=== PATIENT | male | born 1945 | race Caucasian/White ===

== ENCOUNTER → 2017-02-12 | Day surgery (SDC) | payer OTHER ==
[2017-02-02 13:01] VITALS: BMI 31.0
--- NOTE | 2017-02-02 13:51 | PAT Medication Instructions ---
Service Date Feb 02, 2017. Current Home Medication List Aspirin (Aspirin Ec), 81 MG PO BID Carvedilol (Coreg), 1 TAB PO BID Coenzyme Q10 (Ubidecarenone) (Coq10), 100 MG PO QAM Escitalopram Oxalate (Lexapro), 20 MG PO QAM PRN for RN Fish Oil (Sparks-3), 1 CAP PO QAM Garlic (Garlic), 1,000 MG PO QAM Omeprazole (Prilosec), 20 MG PO QAM Rivaroxaban (Xarelto), 20 MG PO QAM Medication Instructions For Your Scheduled Surgery Check with your disintegrator for instructions for: Aspirin (Aspirin Ec), 81 MG PO BID - Hold the following medications 2 weeks prior to surgery: Fish Oil (Sparks-3), 1 CAP PO QAM Garlic (Garlic), 1,000 MG PO QAM Coenzyme Q10 (Ubidecarenone) (Coq10), 100 MG PO QAM - Hold the following medications 3 days prior to surgery per your disintegrator' s instructions: Rivaroxaban (Xarelto), 20 MG PO QAM - Take the following medications the morning of surgery with a sip of water: Carvedilol (Coreg), 1 TAB PO BID Omeprazole (Prilosec), 20 MG PO QAM Escitalopram Oxalate (Lexapro), 20 MG PO QAM PRN for RN (if needed) - Take the following medications as scheduled the night before surgery: Carvedilol (Coreg), 1 TAB PO BID Escitalopram Oxalate (Lexapro), 20 MG PO QAM PRN for RN (if needed) If you have any questions please call us at [phone] or [phone] or [phone]
--- NOTE | 2017-02-02 14:30 | DIAGNOSTIC IMAGING REPORT ---
CHEST 2 VIEWS ROUTINE HISTORY: 71 years-old Male PAT preoperative exam. Calcaneal spur. COMPARISON: None available TECHNIQUE: PA and lateral views of the chest FINDINGS: Cardiomediastinal and hilar silhouettes are within normal limits. Prior median sternotomy with surgical clips projecting over the left heart border. Several of the sternotomy wires are fractured without evidence of diastases. Atherosclerosis of the aorta. No pneumothorax, pleural effusion, focal airspace consolidation or overt pulmonary edema. Bones of the chest appear grossly intact. Multilevel endplate spurring of the spine. IMPRESSION: 1. No acute cardiopulmonary process. 2. Prior median sternotomy with multiple fractured sternotomy wires. No evidence of diastases. The above report was generated using voice recognition software. It may contain grammatical, syntax or spelling errors. Electronically signed by: León Pal M.D. 02/02/2017 2:29 PM Dictated Date/Time: 02/02/2017 2:27 PM
--- NOTE | 2017-02-11 17:24 | History and Physical ---
History & Physical Date Feb 11, 2017. Chief Complaint right achilles pain History of Present Illness The patient is a 71 year old male with complaints of chronic right achilles pain. He had been treated conservatively for achilles tendinitis but failed conservative management. He is now being set up for surgical tx. Past Medical/Surgical History PMH: coronary artery disease, hx of A fib, HTN, Anxiety, GERD, hyperlipidemia Past surgical hx: open heart surgery, appendectomy Social hx: Patient is retired. Former smoker. Occasional alcohol drink. Allergies Coded Allergies: NO KNOWN DRUG ALLERGIES (Verified Allergy, Unknown, NONE, 02/02/17) Shellfish (Verified Allergy, Unknown, ANAPHYLAXIS, 02/02/17) SOB SWELLING-OK WITH TOPICAL AND IV DYES Home Medications Scheduled Aspirin (Aspirin Ec), 81 MG PO BID Carvedilol (Coreg), 1 TAB PO BID Coenzyme Q10 (Ubidecarenone) (Coq10), 100 MG PO QAM Fish Oil (Strong-3), 1 CAP PO QAM Garlic (Garlic), 1,000 MG PO QAM Omeprazole (Prilosec), 20 MG PO QAM Rivaroxaban (Xarelto), 20 MG PO QAM Scheduled PRN Escitalopram Oxalate (Lexapro), 20 MG PO QAM PRN for RN Physical Examination Skin: warm/dry, no rash Eyes: normal inspection ENT: normal ENT inspection Head: normocephalic, atraumatic Neck: supple, no adenopathy, trachea midline Respiratory/Chest: lungs clear, normal breath sounds, no respiratory distress Cardiovascular: regular rate, rhythm, no murmur Abdomen / GI: normal bowel sounds, non tender Extremities: + pertinent finding (Right ankle: prominence of the posterior calcaneus. Swelling along the achilles. Tender at the midsubstance achilles and the achilles insertion. Painful PROM right ankle.) Neurologic/Psych: no motor/sensory deficits, alert, oriented x 3 Diagnosis Right achilles tendinitis Right calcaneal spurs Plan of Treatment Recommend a right achilles reconstruction with FHL tendon transfer, calcaneal exostectomy, resection Tommy's, application PRP. All potential risks, benefits, complications, alternatives, and rehab have been discussed with the patient and he wishes to proceed. He will be scheduled on 02.12.17 with plans to resume Xarelto on POD #1. His pharmacy scheduler recommends spinal and sedation with popliteal block for the procedure.
[~2017-02-12] VITALS: Ht 182.9 cm; Wt 105.6 kg
[~2017-02-12] MED LIST: ASPI81TA28 PO; ATROPINE SULFATE 0.1 MG/ML 5ML SYR IV PRN; BACITRACIN 50000 UNIT VIAL ONE; BUPIVACAINE 0.25% 30 ML VIAL ONE; BUPIVACAINE 0.5 % 5 MG/1 ML PF 10ML VIAL ONE; CALCIUM CHLORIDE 10% 10 ML SYR ONE; CARV6.252 PO; CEFAZOLIN 2000MG IV PUSH 10 ML IV SCH; COEN100C7 PO; DEXAMETHASONE SOD INJ 4 MG/ML VIAL ONE; ESCI1TAB10 PO; EpHEDrine SULFATE INJ 50 MG/ML AMP IV PRN; FENTANYL CITRATE INJ 50 MCG/1 ML 2 ML VIAL IV PRN; FENTANYL CITRATE INJ 50 MCG/1 ML 2 ML VIAL ONE; GARL10007 PO; LACTATED RINGER'S 1000ML 1,000 ML IV SCH; LIDOCAINE HCL 2% 2 ML VIAL (20MG/ML) ONE; MIDAZOLAM HCL 1 MG/ML 2ML VIAL ONE; MORPHINE SULFATE 1MG/1ML 30ML VIAL IV ONE; OMEG10007 PO; ONDANSETRON INJ 2 MG/ML 2 ML VIAL IV PRN; ONDANSETRON INJ 2 MG/ML 2 ML VIAL ONE; OXYC-57 PO; OXYCODONE/ACETAMINOPHEN 5-325 TAB PO PRN; OXYCODONE/ACETAMINOPHEN 5-325 TAB PO SCH; PERCOCET HOME PACK PO ONE; PERCOCET HOME PACK PO SCH; PRLSR20 PO; PROM25TA9 PO; PROPOFOL IV EMULSION 10 MG/ML 20 ML VIAL IV ONE; RIVA1TAB4 PO; ROPIVACAINE 0.5% 5 MG/ML 30 ML VIAL ONE; THROMBIN 5000 UNITS KIT ONE
[2017-02-12 11:15] VITALS: BP 156/80; PULSE 64; TEMP 36.5; O2SAT 97; Ht 182.9 cm; Wt 105.6 kg
--- NOTE | 2017-02-12 14:43 | History & Physical Bridge Note ---
H&P Re-Evaluation Bridge Note: I have examined the patient, reviewed the History & Physical and in the interval since the performance of the History & Physical I have noted the following changes of clinical significance: No changes noted
--- NOTE | 2017-02-12 17:37 | Discharge Instructions ---
Discharge Instructions Date of Service Feb 12, 2017. Admission Reason for Admission: Right Foot Haglunds, Calcaneal Spur, Achilles Tend Discharge Discharge Diagnosis / Problem: right achilles tendinitis Discharge Goals Goal(s): Decrease discomfort, Improve function Activity Recommendations Activity Limitations: per Instructions/Follow-up section Weightbearing Status: Right non-weightbearing . Instructions / Follow-Up Instructions / Follow-Up ACTIVITY RECOMMENDATIONS: Limitations: No weight bearing to affected limb at all times. SPECIAL CARE INSTRUCTIONS: * Some drainage onto the dressing is normal and is no cause for alarm. * Some swelling is natural especially after walking. * When resting, keep your foot elevated above the level of your heart. * Call [facility] if you notice: -Increased drainage -Fever over 101 degrees F -Severe constant pain BANDAGE: * Leave bandage/cast in place unless otherwise directed. * Keep bandage/cast dry at all times. FOLLOW UP VISIT WITH DR. FITZPATRICK If appointment is not already scheduled: Please call [facility] after you get home today to schedule a follow-up appointment for [address] Fitzpatrick at . Current Hospital Diet Patient's current hospital diet: Discharge Diet Recommended Diet: Regular Diet Pending Studies Studies pending at discharge: no Medical Emergencies . Who to Call and When: Medical Emergencies: If at any time you feel your situation is an emergency, please call [phone] immediately. . Non-Emergent Contact Non-Emergency issues call your: Surgeon Call Non-Emergent contact if: temperature is above 101, your pain is not controlled, your pain is worsening . "Provider Documentation" section prepared by Adebayo Boyce. . VTE Core Measure Inpt VTE Proph given/why not?: SCD's
--- NOTE | 2017-02-12 17:58 | [facility] Post Operative Brief Note ---
Immediate Operative Summary Operative Date Feb 12, 2017. Pre-Operative Diagnosis Right Achilles tendonosis Right Calcaneal spur Tommy's Deformity Post-Operative Diagnosis Right Achilles tendonosis Right Calcaneal spur Tommy's Deformity Procedure(s) Performed Right Ankle Achilles Tendon Reconstruction with Flexor Hallucis Longus Tendon Transfer; Right Foot Calcaneal Exostectomy, Resection Haglunds, Application PRP concentrate Surgeon Dr. Cedric Dumont Rn Clinician Surgeon(s) none Estimated Blood Loss 5 ml Findings See dict Specimens None per Surgeon Drains None Anesthesia Spinal with sedation and popliteal block Complication(s) None Disposition Recovery Room / PACU
--- NOTE | 2017-02-12 18:39 | Anesthesiology Progress Note ---
Anesthesia Post Op Note Date & Time Feb 12, 2017 at 18:38 Vital Signs Pain Intensity: 0 Vital Signs Past 12 Hours Date Time Temp Pulse Resp B/P (MAP) Pulse Ox O2 Delivery O2 Flow Rate FiO2 02/12/17 18:25 70 11 137/81 98 Room Air 02/12/17 18:15 63 12 163/95 100 Oxymask 10 02/12/17 18:05 36.1 70 14 147/112 100 Oxymask 10 02/12/17 11:15 36.5 64 20 156/80 (105) 97 Room Air Notes Mental Status: alert / awake / arousable, participated in evaluation Pt Amnestic to Procedure: Yes Nausea / Vomiting: adequately controlled Pain: adequately controlled Airway Patency, RR, SpO2: stable & adequate BP & HR: stable & adequate Hydration State: stable & adequate Neuraxial Anesthesia: was administered, sensory block is resolving Anesthetic Complications: no major complications apparent
[2017-02-12 18:45] VITALS: BP 152/75; PULSE 69; TEMP 36.7; O2SAT 96
[2017-02-12 19:15] VITALS: BP 151/73; PULSE 86; TEMP 36.8; O2SAT 95
--- NOTE | 2017-02-18 13:31 | OPERATIVE REPORT ---
DATE OF OPERATION: 02/12/2017 PREOPERATIVE DIAGNOSES: 1. Right Tommy's deformity. 2. Severe Achilles tendinosis. 3. Posterior calcaneal exostosis. POSTOPERATIVE DIAGNOSES: Same. PROCEDURE: 1. Right Achilles tendon reconstruction with flexor hallucis longus tendon transfer. 2. Resection of Tommy's deformity. 3. Posterior calcaneal exostectomy. 4. Application of platelet rich plasma concentrate. SURGEON: Dr. Dumont. CERTIFIED NOVELL ADMINISTRATOR: None. ANESTHESIA: Spinal with sedation and popliteal block. SPECIMENS: None. DRAINS: None. COMPLICATIONS: None. BLOOD LOSS: 5 mL PERTINENT HISTORY: This is a 71-year-old gentleman who had severe right posterior Achilles pain and deformity. He had attempted conservative management for severe Achilles tendinopathy for an extended period of time including bracing, use of assistive device, shoewear modification, anti-inflammatories, rest. He had an MRI which demonstrated near complete rupture of the Achilles with significant scarring, large exostosis posterior calcaneus, and a large Tommy's deformity. The patient is now scheduled for surgery as indicated. All potential risks, benefits, complications, alternatives, rehab, potential risk for incomplete relief of symptoms, need for further surgery, DVT, PE, , persistent pain, swelling, scarring, weakness, neurovascular injury, wound complications were discussed with the patient. The patient decided to proceed with the procedure as indicated. PROCEDURE: The patient was taken to the Operative Suite and placed supine on the Operating Room table. After reviewing the consent and identification of the proper operative site, the patient was anesthetized. LMA was placed. Tourniquet was placed high on the thigh over cast padding. The right lower extremity was then sterilely prepped and draped in the usual fashion after the patient was rolled prone over bolsters and all bony prominences were properly padded and protected. Next, the right lower extremity was sterilely prepped and draped in the usual fashion. It was elevated and exsanguinated with an Esmarch bandage and tourniquet inflated to 350 mmHg. Next, an incision was made with 15-blade scalpel approximately 1 cm medial to the medial border of the Achilles tendon. The incision was deep into the subcutaneous tissue. Meticulous hemostasis was achieved with electrocautery. Full thickness skin flaps were developed both medially and laterally. The peritenon was identified and then incised in line with the skin incision and gently elevated from the Achilles tendon. The Achilles tendon rupture was clearly visualized and gently dbrided with forceps and scissors. The wound was irrigated copiously with sterile Normal Saline. Allis clamps were placed on the proximal portion of the Achilles tendon and placed on stretch and then #2 Kevlar based suture in this case FiberWire was used to pass through the proximal portion of the rupture with a Krackow locking loop suture. The limbs of the suture were then cut and hemostat was applied. Next, Krackow locking loop suture was then passed through the distal portion of the rupture. Next, the Achilles was placed in slight equinus. The ends of the tendon rupture were then easily approximated and then tied and hemostats were applied. Next, #2 FiberWire suture was then passed in a Satsop weave through the proximal and distal halves of the tendon rupture and then tied and cut with appropriate tension applied to the Achilles tendon. Next, the ends of the sutures were then cut and the repair site was then reinforced with running 2-0 Vicryl suture. The wound was irrigated with sterile Normal Saline. The peritenon was then closed using 3-0 Vicryl. The dermis was closed using buried interrupted 3-0 Vicryl and the skin was closed using 4-0 nylon. A sterile compressive dressing and bulky Fredrick Whalen plaster splint was applied in slight gravity equinus overwrapped with an Ga wrap. The tourniquet was released. The patient was awakened and taken to Recovery in stable condition. ERNESTO
== END | disposition home or self-care (01) ==
LOC: C.ACU 10:42
PROVIDERS: ATTEND Orthopaedic Surgery Sports Medicine
DX: M92.61 Juvenile osteochondrosis of tarsus, right ankle (principal); M76.61 Achilles tendinitis, right leg; M77.31 Calcaneal spur, right foot; I48.91 Unspecified atrial fibrillation; I25.10 Atherosclerotic heart disease of native coronary artery without angina pectoris; I10 Essential (primary) hypertension; E78.5 Hyperlipidemia, unspecified; K21.9 Gastro-esophageal reflux disease without esophagitis; F41.9 Anxiety disorder, unspecified; Z87.891 Personal history of nicotine dependence; Z79.01 Long term (current) use of anticoagulants; Z79.82 Long term (current) use of aspirin; Z79.899 Other long term (current) drug therapy; Z95.1 Presence of aortocoronary bypass graft; K44.9 Diaphragmatic hernia without obstruction or gangrene; F32.9 Major depressive disorder, single episode, unspecified

== ENCOUNTER 2018-12-08 08:30 | Inpatient (IN) ==
--- NOTE | 2018-12-02 12:08 | Anesthesiology Consultation ---
Date of Service December 02, 2018 Assessment & Plan Chart Review Chart Review: Pending: Refer to Additional Notes / Consult section (cardiologists most recent note) History Surgery Operation Date: 12/08/18 07:30 Proposed Procedures p L4-L5, L5-S1 Decompression and Fusion with Spinal Cord Monitoring - Sagar Cohen DO Height/Weight Height: 6 ft Weight: 99.79 kg Allergies Allergy/AdvReac Type Severity Reaction Status Date / Time No Known Drug Allergies Allergy Unknown NONE Verified 11/23/18 15:57 shellfish derived Allergy HIVES,EVERYTHING Verified 11/23/18 15:57 SWELLS UP, SOME TROUBLE BREATHING Medications Home Medications Medication Instructions Recorded Confirmed Last Taken aspirin [Aspir-81] 81 mg PO BID 11/23/18 11/23/18 Unknown atorvastatin 10 mg PO DAILY 11/23/18 11/23/18 Unknown carvedilol 6.25 mg PO BID 11/23/18 11/23/18 Unknown cyclobenzaprine 10 mg PO HS 11/23/18 11/23/18 Unknown escitalopram oxalate 20 mg PO QAM 11/23/18 11/23/18 Unknown omeprazole 20 mg PO QAM 11/23/18 11/23/18 Unknown rivaroxaban [Xarelto] 20 mg PO DAILY 11/23/18 11/23/18 Unknown zolpidem 10 mg PO UD PRN 11/23/18 11/23/18 Unknown Past Medical History Medical History Acid reflux Afib DX 2 YR AGO - NO CARDIOVERSION Anxiety and depression Degenerative disc disease History of [place] (myocardial infarction) AFTER HEART TESTING - WAS TOLD HAD "PARTIAL" [place] IN HX AND PROBABLY DIDN'T KNOW HE HAD IT Hypertension Past Surgical History Surgical History History of Achilles tendon repair RIGHT History of appendectomy History of cardiac cath X2 2001...CATH....RUSHED FOR OPEN HEART SURGERY 4 YR AGO - RECOMMENDED - NO FINDINGS - LISSA SIMPSON History of colonoscopy History of open heart surgery TRIPLE BYPASS 2001 History of total left knee replacement Social History Smoking Status: Former smoker Do You Dip or Chew Tobacco: No Smoking End Date: SMOKED 60 YRS, QUIT 2-3 YR AGO Hx Alcohol Use: Yes Alcohol type: hard liquor alcohol intake frequency: 0-2 drinks per day Hx Substance Use: No substance use type: does not use Testing Laboratory Results Blood Type O Positive 11/22/18 11:40 Antibody Screen NEGATIVE 11/22/18 11:40 Laboratory Tests 11/22/18 11/22/18 11/22/18 11:39 11:39 11:39 WBC 10.31 Hgb 14.4 Hct 42.3 Plt Count 298 PT 13.0 H INR 1.3 H APTT 34.7 H Sodium 136 Potassium 3.9 Chloride 102 Carbon Dioxide 25 BUN 24 H Creatinine 0.97 Electrocardiogram Date: 09/19/18 09/19/2018 Sinus rhythm with first degree AV block intermittent sinus pause with junctional escape non specific intraventricular conduction block Chest X-Ray Date: 09/19/18 Findings: + NAD Echocardiogram Date: 10/12/18 10/12/18 Final report 1. High normal left ventricular size with increase in wall thickness and left ventricular hypertrophy 2. Global hypokinesis, more pounds over the inferoapical septum consistent with underlying ischemic cardiomyopathy 3. Depressed LV function at 45%, was 40% in previous study in 2017 4. Grade I LV diastolic dysfunction, correlate clinically 5. Normal sized RV and function 6. Normal sized both atria and aortic root 7. Aortic peak gradient 8.08 mmHg 8. Mitral valve area 4.2cn squared 9. Mild MR, Mild TR and mild PI by doppler study 10. Mild pulmonary hypertension at 35.40mmHg Stress Test Date: 10/12/18 myocardial perfusion stress test 10/12/18 Impression: Scarring of the inferior, apical and far apical anterior segments with no e vidence of current ischemia. The overall left ventricular function is moderately to markedly reduced with global hypokinesis, beyond that expected from what would be predicated bases on the myocardial perfusion images. There is likely concomitant cardiomyopathy.
[~2018-12-08 08:30] MED LIST changes: +ACETAMINOPHEN 500 MG TAB PO SCH; -ASPI81TA28 PO; -ATROPINE SULFATE 0.1 MG/ML 5ML SYR IV PRN; -BACITRACIN 50000 UNIT VIAL ONE; -BUPIVACAINE 0.25% 30 ML VIAL ONE; -BUPIVACAINE 0.5 % 5 MG/1 ML PF 10ML VIAL ONE; -CALCIUM CHLORIDE 10% 10 ML SYR ONE; -CARV6.252 PO; +CEFAZOLIN 2000MG 2,000 MG/15 ML SYR IV SCH; -CEFAZOLIN 2000MG IV PUSH 10 ML IV SCH; -COEN100C7 PO; +CeleBREX 200 MG CAP PO SCH; -DEXAMETHASONE SOD INJ 4 MG/ML VIAL ONE; -ESCI1TAB10 PO; -EpHEDrine SULFATE INJ 50 MG/ML AMP IV PRN; -FENTANYL CITRATE INJ 50 MCG/1 ML 2 ML VIAL IV PRN; -FENTANYL CITRATE INJ 50 MCG/1 ML 2 ML VIAL ONE; +GABAPENTIN 300 MG CAP PO SCH; -GARL10007 PO; -LACTATED RINGER'S 1000ML 1,000 ML IV SCH; -LIDOCAINE HCL 2% 2 ML VIAL (20MG/ML) ONE; +LR 15ML/HR IV SCH; -MIDAZOLAM HCL 1 MG/ML 2ML VIAL ONE; -MORPHINE SULFATE 1MG/1ML 30ML VIAL IV ONE; -OMEG10007 PO; -ONDANSETRON INJ 2 MG/ML 2 ML VIAL IV PRN; -ONDANSETRON INJ 2 MG/ML 2 ML VIAL ONE; -OXYC-57 PO; -OXYCODONE/ACETAMINOPHEN 5-325 TAB PO PRN; -OXYCODONE/ACETAMINOPHEN 5-325 TAB PO SCH; -PERCOCET HOME PACK PO ONE; -PERCOCET HOME PACK PO SCH; -PRLSR20 PO; -PROM25TA9 PO; -PROPOFOL IV EMULSION 10 MG/ML 20 ML VIAL IV ONE; -RIVA1TAB4 PO; -ROPIVACAINE 0.5% 5 MG/ML 30 ML VIAL ONE; +SODIUM CHLORIDE 0.9% 250 ML IV PRN; -THROMBIN 5000 UNITS KIT ONE
[2018-12-08] MEDS ORDERED: fentaNYL citrate 100 MCG/2 ML VIAL ONE ×4 (08:34→11:26)
[2018-12-08] MEDS ORDERED: MIDAZOLAM HCL 1 MG/ML 2ML VIAL ONE (08:34)
[2018-12-08] MEDS ORDERED: HYDROmorphone INJ 2 MG/ML SYR/VIAL ONE ×2 (08:34→09:57)
--- NOTE | 2018-12-08 09:39 | History & Physical Bridge Note ---
Date of Service December 08, 2018 History & Physical Bridge Note I have examined the patient, reviewed the History & Physical and in the interval since the performance of the History & Physical I have noted the following changes of clinical significance: no changes noted
--- NOTE | 2018-12-08 09:40 | History & Physical Report ---
Date of Service December 08, 2018 Assessment & Plan (1) Spinal stenosis, lumbar region with neurogenic claudication: Decompression fusion L4-5 L5-S1 Present on Admission?: Yes History of Present Illness Chief Complaint: Back and bilateral leg pain Primary Care Provider: Tanner Macias 73-year-old male who presents with chronic persistent back and bilateral leg pain. After failing extensive course of nonoperative care is here for surgical intervention. Allergies Allergy/AdvReac Type Severity Reaction Status Date / Time No Known Drug Allergies Allergy Unknown NONE Verified 12/08/18 08:59 shellfish derived Allergy HIVES,EVERYTHING Verified 12/08/18 08:59 SWELLS UP, SOME TROUBLE BREATHING Home Medications Home Medications Medication Instructions Recorded Confirmed Type aspirin [Aspir-81] 81 mg PO BID 11/23/18 12/08/18 History atorvastatin 10 mg PO DAILY 11/23/18 12/08/18 History carvedilol 6.25 mg PO BID 11/23/18 12/08/18 History cyclobenzaprine 10 mg PO HS 11/23/18 12/08/18 History escitalopram oxalate 20 mg PO QAM 11/23/18 12/08/18 History omeprazole 20 mg PO QAM 11/23/18 12/08/18 History rivaroxaban [Xarelto] 20 mg PO DAILY 11/23/18 12/08/18 History zolpidem 10 mg PO UD PRN 11/23/18 12/08/18 History Past Med/Surg History Medical History Acid reflux Afib DX 2 YR AGO - NO CARDIOVERSION Anxiety and depression Degenerative disc disease History of [place] (myocardial infarction) AFTER HEART TESTING - WAS TOLD HAD "PARTIAL" [place] IN HX AND PROBABLY DIDN'T KNOW HE HAD IT Hypertension Surgical History History of Achilles tendon repair RIGHT History of appendectomy History of cardiac cath X2 2001...CATH....RUSHED FOR OPEN HEART SURGERY 4 YR AGO - RECOMMENDED - NO FINDINGS - LISSA SIMPSON History of colonoscopy History of open heart surgery TRIPLE BYPASS 2001 History of total left knee replacement Social History Preferred Language: Thai Communication Ability: Effective Iridologist Required: No Beliefs That Will Affect Care: None Current Living Situation: Alone Other Information That Helps Us Care for You: No Feels Safe at Home: Yes Smoking Status: Former smoker Do You Dip or Chew Tobacco: No ; Smoking End Date: SMOKED 60 YRS, QUIT 2-3 YR AGO ; Hx Alcohol Use: Yes Alcohol type: hard liquor Hx Substance Use: No Physical Exam Physical Exam: Patient is alert and oriented neurologically intact. Results & Data Vital Signs (Past 12 Hours) Vital Signs Temp Pulse Resp BP Pulse Ox 12/08/18 09:03 36.6 C 73 20 171/85 H 96
[2018-12-08] MEDS ORDERED: ATROPINE SULFATE 0.1 MG/ML 10ML SYR IV PRN (09:55)
[2018-12-08] MEDS ORDERED: PROMETHAZINE HCL 12.5 MG in SODIUM CHLORIDE 0.9% 50 ML IV PRN ×2 (09:55→14:08)
[2018-12-08] MEDS ORDERED: fentaNYL citrate 100 MCG/2 ML VIAL IV PRN (09:55)
[2018-12-08] MEDS ORDERED: METOCLOPRAMIDE HCL INJ 5 MG/ML 2 ML VIAL IV PRN ×2 (09:55→14:08)
[2018-12-08] MEDS ORDERED: ONDANSETRON INJ 2 MG/ML 2 ML VIAL IV PRN ×2 (09:55→14:08)
[2018-12-08] MEDS ORDERED: HYDROmorphone INJ 2 MG/ML SYR/VIAL IV PRN (09:55)
[2018-12-08] MEDS ORDERED: DEXAMETHASONE SOD INJ 4 MG/ML VIAL IV PRN (09:55)
[2018-12-08] MEDS ORDERED: ePHEDrine sulfate 50 MG/ML AMP IV PRN (09:55)
[2018-12-08] MEDS ORDERED: BUPIVACAINE/EPINEPHRINE 0.5% MPF 1:200,000 30 ML VIAL ONE (09:56)
[2018-12-08] MEDS ORDERED: LIDOCAINE HCL 2% 2 ML VIAL/AMP(20MG/ML) INFIL ONE (09:56)
[2018-12-08] MEDS ORDERED: ROCURONIUM BROMIDE 10 MG/ML 5 ML VIAL ONE (09:56)
[2018-12-08] MEDS ORDERED: ONDANSETRON INJ 2 MG/ML 2 ML VIAL ONE (09:56)
[2018-12-08] MEDS ORDERED: BACITRACIN INJ 50,000 UNIT VIAL ONE (09:56)
[2018-12-08] MEDS ORDERED: GLYCOPYRROLATE 0.2 MG/ML VIAL ONE (09:56)
[2018-12-08] MEDS ORDERED: DEXAMETHASONE SOD INJ 4 MG/ML VIAL ONE (09:56)
[2018-12-08] MEDS ORDERED: PROPOFOL IV EMULSION 10 MG/ML 20 ML VIAL IV ONE (09:56)
[2018-12-08] MEDS ORDERED: NEOSTIGMINE METHYLSULFATE 1 MG/ML 10ML VIAL ONE (09:56)
[2018-12-08] MEDS ORDERED: LARYING-O-JET KIT (LTA) ONE (09:56)
[2018-12-08] MEDS ORDERED: FLOSEAL HEMOSTATIC MATRIX 10ML TOP ONE (10:49)
[2018-12-08] MEDS ORDERED: SODIUM CHLORIDE 0.9% INJ 10 ML VIAL ONE (11:45)
--- NOTE | 2018-12-08 12:14 | Operative Report ---
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 #4 interbody fusion L4-5 per #5 placed a peek cage 13 x 26 mm at L4-5. #6 placement of locally harvested morselized autograft in the posterior lateral gutters. #9 placement infuse collagen sponge bone mass graft in the posterior lateral gutters and ostial amp and interbody space. Surgeon Sagar Cohen DO [facility] End Department Supervisor Tashia Diaz Estimated Blood Loss 175 Findings Consistent with Post-Op Diagnosis Specimens None Indications This is a 73-year-old male who presents with above-mentioned diagnosis after failing extensive course of nonoperative care like to undergo the above- mentioned procedure. Description of Procedure Patient was met with identified and informed consent obtained. Patient was then taken to the operative suite underwent intubation placed in a prone position the Freddie table on top of the Andrey frame. All bony prominences well-padded eyes inspected to ensure no external pressure placed upon them. Sharp dissection with the assistance of Bovie cautery was then performed down to and exposing the lamina and transverse processes of L4-L5 and the sacral bilaterally. There is obvious autofusion at L5-S1 level. I then performed a complete laminectomy of L4 partial laminectomy L3 from a caudal cephalad fashion including bilateral medial facetectomies and foraminotomies to address severe spinal stenosis as well as removal of facet cyst adhered to the dura. After this complete pedicle screws were placed in L4 and L5 bilaterally with assistance of fluoroscopy and appropriate size zeinab placed. By way of a transforaminal approach on the right a complete discectomy was performed endplates curetted to subcortical bleeding bone and a 13 x 26 mm peek cage filled with ostium bone graft tapped in position. The rods were then locked in final position bilaterally. The transverse processes of L4 an L5 bur to subcortical bleeding bone. Infuse collagen sponge mass graft and local autograft placed in the posterior lateral gutters. 15 round HUNTER drain inserted. Incision was then closed with 1 Vicryl fascia 2-0 Vicryl subcutaneous and 4 Monocryl for final skin closure. Steri- Strip sterile dressings placed. Patient will continue PACU stable disc. Please note Tashia Diaz present on the entire procedure involved in patient positioning complex portions of the surgery and final skin closure. Lastly spinal cord monitoring was utilized throughout the procedure no changes noted. I attest to the content of the Intraoperative Record and any orders documented therein. Any exceptions are noted below.
--- NOTE | 2018-12-08 12:20 | Fluoroscopy Report ---
FL lumbar spine 2-3V CLINICAL HISTORY: L4-S1 DECOMPRESSION AND FUSION COMPARISON STUDY: None FLUOROSCOPY TIME: 15 seconds. NUMBER OF FLUOROSCOPIC IMAGES: 3 FINDINGS: 3 intraoperative fluoroscopic spot images reveal postsurgical changes of an L4-5 discectomy , interbody fusion, and posterior pedicle screw fixation. There is a minimal grade 1 spinal listhesis of L4 and L5. IMPRESSION: Intraoperative fluoroscopic spot images demonstrating a L4-5 spinal decompression and fu alice Electronically signed by: Gus Coates M.D. 12/08/2018 12:18 PM
[2018-12-08] MEDS ORDERED: PHENYLEPHRINE 100MCG/ML 5ML SYR ONE (12:24)
[2018-12-08] MEDS ORDERED: KETOROLAC 30 MG/ML VIAL ONE (12:24)
--- NOTE | 2018-12-08 13:19 | Anesthesiology Progress Note ---
Date of Service December 08, 2018 Anesthesia Post Procedure Vital Signs Vital Signs: Temp Pulse Pulse Resp BP Pulse Ox 12/08/18 13:10 36.4 C L 56 L 16 156/81 H 94 12/08/18 13:00 56 L 16 163/98 H 97 12/08/18 12:50 56 L 16 163/89 H 96 12/08/18 12:40 67 14 156/88 H 98 12/08/18 12:31 36.0 C L 74 14 158/106 H 97 12/08/18 09:03 36.6 C 73 20 171/85 H 96 Transfer of Care Handoff Completed per policy Notes Mental Status: alert / awake / arousable and participated in evaluation Patient Amnestic to Procedure: Yes Nausea / Vomiting: adequately controlled Pain: adequately controlled Airway Patency, RR, SpO2: stable & adequate BP & HR: stable & adequate Hydration State: stable & adequate Anesthetic Complications: no major complications apparent
[2018-12-08] MEDS ORDERED: LORazepam 0.5 MG/1 ML VIAL IV PRN (14:08)
[2018-12-08] MEDS ORDERED: FAMOTIDINE 20 MG TAB PO PRN (14:08)
[2018-12-08] MEDS ORDERED: ACETAMINOPHEN 500 MG TAB PO PRN (14:08)
[2018-12-08] MEDS ORDERED: HYDROmorphone INJ 0.5 MG/0.5 ML SYR IV PRN (14:08)
[2018-12-08] MEDS ORDERED: DO NOT ADMINISTER PNEUMOCOCCAL VACCINE PRN (14:08)
[2018-12-08] MEDS ORDERED: LORazepam 0.5 MG TAB PO PRN (14:08)
[2018-12-08] MEDS ORDERED: NALOXONE HCL 0.4 MG/1 ML VIAL/CARP IV PRN (14:08)
[2018-12-08] MEDS ORDERED: bisacodyL 10 MG SUPP PR PRN (14:08)
[2018-12-08] MEDS ORDERED: ONDANSETRON 4 MG TAB PO PRN (14:08)
[2018-12-08] MEDS ORDERED: ACETAMINOPHEN 1,000 MG/100 ML VIAL IV PRN (14:08)
[2018-12-08] MEDS ORDERED: SODIUM CHLORIDE 0.9% 1000ML 1,000 ML IV SCH ×2 (14:08→16:00)
[2018-12-08] MEDS ORDERED: DO NOT ADMINISTER FLU VACCINE PRN (14:08)
[2018-12-08] MEDS ORDERED: ALUMINUM/MAGNESIUM SUSP 30 ML UDC PO PRN (14:08)
[2018-12-08] MEDS ORDERED: SOD PHOSPHATE/SOD BIPHOSPHATE ENEMA 132 ML BTL PR PRN (14:08)
[2018-12-08] MEDS ORDERED: ZOLPIDEM TARTRATE 10 MG TAB PO PRN (14:08)
--- NOTE | 2018-12-08 15:16 | History & Physical Report ---
Date of Service December 08, 2018 Assessment & Plan (1) Status post lumbar surgery: Post op day# 0 S/P Lumbar decompression L3-L5, fusion L4-L5 by Dr Vicki REYNAGA#175ml Post op currently doing well -pain management per ortho -wound management per ortho -PT/OT as appropriate -DVT prophylaxis per ortho - aspirin 81mg BID, SCDs -incentive spirometry -monitor H&H for acute blood loss anemia (2) Chronic combined systolic and diastolic CHF (congestive heart failure): out patient records: 09/2018 Echo: EF 45%, grade 1 diastolic dysfunction, global hypokinesis No SOB, no significant edema, lungs clear, no signs fluid overload at this time. Had 2250ml IVF perioperatively -Current IVF at 100ml/hr, will limit to 1L -Monitor volume status closely (3) CAD (coronary artery disease): Hx CAD S/P CABG x 3 in 2001 Outpatient records: Hx Lexiscan thallium stress test 09/2018 consistent with scarring of inferior apical and far apical anterior segments with no evidence of recurrent ischemia overall left ventricular function is moderate to markedly reduced with global hypokinesis No current CP or SOB -Continue aspirin, carvedilol, atorvastatin (4) Paroxysmal atrial fibrillation: Regular rhythm -Xarelto has been on hold since 12/01/18 -CHADSVASC score: 3. Plan to resume xarelto when cleared by ortho (5) Hypertension: Stable -Continue carvedilol (6) Hyperlipidemia: -Continue statin (7) Anxiety and depression: -Continue escitalopram (8) Acid reflux: -Continue PPI DVT Prophylaxis -SCDs, aspirin 81mg BID Disposition per primary team Follows with Dr Macias in [place] for routine care Pt was seen and care coordinated with Dr Morgan. See addendum Pt will be followed by Dr Ramos starting 12/09/18 Thank you for this consultation. We will follow the patient with you during their hospital stay. You [facility] a [facility] via pager @ [phone]. History of Present Illness Chief Complaint: Post op medical management Primary Care Provider: Tanner Macias Pt is 73 y/o M with PMH chronic systolic and diastolic heart failure, dilated cardiomyopathy, CAD s/p CABG x 3, paroxysmal atrial fibrillation, HLD, HTN, GERD, depression seen in post op medical management s/p lumbar decompression L3- L5 and fusion of L4-L5. Post-op pt reports doing well with pain controlled. Tolerated clear liquids for lunch. Denies nausea or vomiting. Denies CP, SOB, fever/chills, diaphoresis, diarrhea, OLVERA, dizziness, syncope, vision changes, neck pain, orthopnea, palpitations, cough, sore throat, choking, otalgia, rhinorrhea, abdominal pain, extremity edema, rashes, urinary symptoms. Allergies Allergy/AdvReac Type Severity Reaction Status Date / Time No Known Drug Allergies Allergy Unknown NONE Verified 12/08/18 08:59 shellfish derived Allergy HIVES,EVERYTHING Verified 12/08/18 08:59 SWELLS UP, SOME TROUBLE BREATHING Home Medications Home Medications Medication Instructions Recorded Confirmed Type aspirin [Aspir-81] 81 mg PO BID 11/23/18 12/08/18 History atorvastatin 10 mg PO HS 11/23/18 12/08/18 History carvedilol 6.25 mg PO BID 11/23/18 12/08/18 History cyclobenzaprine 10 mg PO HS 11/23/18 12/08/18 History escitalopram oxalate 20 mg PO QAM 11/23/18 12/08/18 History omeprazole 20 mg PO QAM 11/23/18 12/08/18 History rivaroxaban [Xarelto] 20 mg PO DAILY 11/23/18 12/08/18 History zolpidem 10 mg PO UD PRN 11/23/18 12/08/18 History oxycodone 5 mg PO Q4H PRN #30 tab 12/08/18 Rx tramadol 50 mg PO Q4H PRN #30 tab 12/08/18 Rx Past Med/Surg History Medical History CAD (coronary artery disease) (Chronic) Congestive cardiomyopathy (Chronic) Chronic combined systolic and diastolic CHF (congestive heart failure) (Chronic) Paroxysmal atrial fibrillation (Chronic) Hypertension (Chronic) Anxiety and depression (Chronic) Degenerative disc disease (Chronic) Acid reflux (Chronic) History of ME (myocardial infarction) (Chronic) AFTER HEART TESTING - WAS TOLD HAD "PARTIAL" ME IN HX AND PROBABLY DIDN'T KNOW HE HAD IT Surgical History History of appendectomy (Chronic) History of total left knee replacement (Chronic) History of colonoscopy (Chronic) History of cardiac cath (Chronic) X2 2002...CATH....RUSHED FOR OPEN HEART SURGERY 4 YR AGO - DR STARKS - NO FINDINGS - [facility]PSON History of open heart surgery (Chronic) TRIPLE BYPASS 2001 History of Achilles tendon repair (Chronic) RIGHT Family History Mother Cancer Social History Preferred Language: Niuean Communication Ability: Effective [employer] Sales Required: No Beliefs That Will Affect Care: None Current Living Situation: Alone Other Information That Helps Us Care for You: No Feels Safe at Home: Yes Smoking Status: Former smoker Do You Dip or Chew Tobacco: No ; Smoking End Date: SMOKED 60 YRS, QUIT 2-3 YR AGO ; Hx Alcohol Use: Yes (2 drinks vodka day) Alcohol type: hard liquor Hx Substance Use: No Review of Systems Review of Systems: All systems reviewed & are unremarkable except as noted in HPI & below Physical Exam Physical Exam: General: no acute distress, WDWN Head: normocephalic, atraumatic Eyes:EOM's intact, conjunctiva non-injected, anicteric ENT: normal inspection external ears, nose, mucous membranes moist Neck: supple, trachea midline Lungs: clear, no respiratory distress, no wheezing/rhonchi/rales CV: regular rhythm, rate 60, no murmur,no pretibial edema Abd: normal BS, soft, non-tender Back: dressing in place and dry, HUNTER drain in place Ext: no cyanosis, no calf tenderness; bilateral pedal pushes and pulls intact bilaterally, sensation to light touch intact, brisk capillary refill Neuro: A&O x 3, no focal deficits noted, normal affect Skin: warm, dry Results & Data Vital Signs (Past 12 Hours) Vital Signs Temp Pulse Pulse Resp BP Pulse Ox 12/08/18 14:49 54 L 16 127/75 98 12/08/18 14:20 36.3 C L 62 16 128/79 95 12/08/18 13:50 36.9 C 57 L 16 149/75 H 93 12/08/18 13:35 57 L 16 144/80 H 98 12/08/18 13:20 51 L 16 158/71 H 97 12/08/18 13:10 36.4 C L 56 L 16 156/81 H 94 12/08/18 13:00 56 L 16 163/98 H 97 12/08/18 12:50 56 L 16 163/89 H 96 12/08/18 12:40 67 14 156/88 H 98 12/08/18 12:31 36.0 C L 74 14 158/106 H 97 12/08/18 09:03 36.6 C 73 20 171/85 H 96 Code Status & VTE Plan VTE Prophylaxis Plan VTE Prophylaxis will be ordered: Yes Supervising Physician Co-Signing Physician Notes HISTORY: Record reviewed. Patient interviewed and examined in his room around 17:00. Care coordinated with Valerie Coello PA-C. Please refer to her documentation for patient's history. Briefly, 73-year-old male with history of coronary artery disease, chronic systolic/diastolic CHF, paroxysmal atrial fibrillation, and other problems as outlined. Underwent lumbar decompression/fusion today. Doing well postoperatively. No chest pain, cough, shortness of breath, nausea, vomiting. Postoperative pain fairly well controlled. EXAM: General- no distress Lungs- clear to auscultation; no respiratory distress Cardiovascular- RRR; I/ systolic murmur at base; no gallop; no JVD; no pretibial edema Abdomen- + bowel sounds, soft, nontender Extremities- no cyanosis; no calf tenderness; TEDS and SCD's applied Neuro- alert, oriented Skin- warm & dry DATA: Preop CBC on 11/22/2018 demonstrated hemoglobin 14.4 with an MCV of 104. Other lab studies as noted. Chest x-ray performed at [facility] in [place] on 12/01/2018 showed postsurgical changes, no acute findings. EKG performed on 09/19/2018 reviewed and demonstrated sinus rhythm, first-degree AV block, intermittent sinus pause with junctional escape, nonspecific ST/T wave changes laterally. Echocardiogram performed at [facility] on 10/12/2018 showed LVEF of 45% with segmental wall motion abnormalities inferoapically. ASSESSMENT AND PLAN: Status post lumbar decompression/fusion. Doing well postoperatively. History of ischemic heart disease, CHF, paroxysmal atrial fibrillation. Cardiac status appears to be stable. Continue antiplatelet therapy with aspirin if okay from surgical perspective. Hold rivaroxaban in the immediate postoperative and resume when able. Macrocytosis with MCV of 104 noted. Check B12, folic acid, LFTs, TSH. Please refer to CALVIN English's documentation for discussion of other issues.
[2018-12-08] MEDS: CEFAZOLIN 2000MG 2,000 MG/15 ML SYR IV SCH (17:38)
[2018-12-08] MEDS: TRAMADOL HCL 50 MG TABLET PO PRN (18:28)
[2018-12-08] MEDS: CYCLOBENZAPRINE HCL 10 MG TAB PO SCH (20:55)
[2018-12-08] MEDS: ATORVASTATIN 10 MG TAB PO SCH (20:55)
[2018-12-08] MEDS: ASPIRIN 81 MG ECTAB PO SCH (20:55)
[2018-12-08] MEDS: DOCUSATE SODIUM/SENNA 50/8.6MG TAB PO SCH (20:55)
[2018-12-08] MEDS: carvediloL 6.25 MG TAB PO SCH (20:57)
[2018-12-08] MEDS: OXYCODONE HCL IR 5 MG TAB (IMMEDIATE RELEASE) PO PRN (21:12)
[2018-12-09] MEDS: TRAMADOL HCL 50 MG TABLET PO PRN (00:22)
[2018-12-09] MEDS: CEFAZOLIN 2000MG 2,000 MG/15 ML SYR IV SCH (00:23)
[2018-12-09] MEDS: OXYCODONE HCL IR 5 MG TAB (IMMEDIATE RELEASE) PO PRN ×4 (04:09→20:37)
[2018-12-09] MEDS: POLYETHYLENE (MIRALAX) 17 GM PACK PO SCH ×4 (05:29→23:43)
[2018-12-09 06:00] LABS: Basophils # (auto) 0.01 K/uL (0-0.2); Basophils % (auto) 0.1 %; Eosinophils # (auto) 0.16 K/uL (0-0.5); Eosinophils % (auto) 1.5 %; Hematocrit (blood only) 37.6 % (42-52); Hemoglobin 12.6 g/dL (14.0-18.0); Immature Granulocytes # (auto) 0.03 K/uL (0.00-0.02); Immature Granulocytes % (auto) 0.3 %; Lymphocytes # (auto) 1.85 K/uL (1.2-3.4); Lymphocytes % (auto) 17.7 %; Mean Corpuscular Hemoglobin 35.4 pg (25-34); Mean Corpuscular Hgb Conc 33.5 g/dL (32-36); Mean Corpuscular Volume 105.6 fL (80-100); Mean Platelet Volume 10.6 fL (7.4-10.4); Monocytes # (auto) 0.92 K/uL (0.11-0.59); Monocytes % (auto) 8.8 %; Neutrophils # (auto) 7.49 K/uL (1.4-6.5); Neutrophils % (auto) 71.6 %; Platelet Count 225 K/uL (130-400); RDW Coefficient of Variation 12.6 % (11.5-14.5); Red Blood Count 3.56 M/uL (4.7-6.1); White Blood Count 10.46 K/uL (4.8-10.8)
[2018-12-09 06:34] LABS: BUN Creatinine Ratio 13.9 (10-20); Calcium 8.6 mg/dl (8.5-10.1); Creatinine Clr Calc Pharmacy 89.7 ml/min; Est GFR (African American) 98.3; Est GFR (Non-African American) 84.8; Potassium 4.4 mmol/L (3.5-5.1)
[2018-12-09] MEDS: carvediloL 6.25 MG TAB PO SCH ×2 (08:43→20:32)
[2018-12-09] MEDS: ASPIRIN 81 MG ECTAB PO SCH ×2 (08:43→20:33)
[2018-12-09] MEDS: ESCITALOPRAM OXALATE 20 MG TAB PO SCH (08:43)
[2018-12-09] MEDS: PANTOprazole 40 MG TAB PO SCH (08:44)
[2018-12-09] MEDS ORDERED: ATORVASTATIN 10 MG TAB PO SCH (09:00)
--- NOTE | 2018-12-09 09:40 | Anesthesiology Progress Note ---
Date of Service December 09, 2018 Anesthesia Post Procedure Vital Signs Vital Signs: Temp Pulse Pulse Pulse Pulse Resp BP 12/09/18 07:25 36.9 C 72 16 12/09/18 04:51 36.6 C 63 16 108/57 L 12/09/18 00:22 54 L 54 L 12/08/18 23:49 37.2 C 43 L 18 12/08/18 21:01 64 12/08/18 19:22 36.4 C L 90 16 12/08/18 16:42 36.5 C 51 L 16 12/08/18 15:53 36.4 C L 56 L 16 12/08/18 14:49 54 L 16 12/08/18 14:20 36.3 C L 62 16 12/08/18 13:50 36.9 C 57 L 16 12/08/18 13:35 57 L 16 12/08/18 13:20 51 L 16 12/08/18 13:10 36.4 C L 56 L 16 12/08/18 13:00 56 L 16 12/08/18 12:50 56 L 16 12/08/18 12:40 67 14 12/08/18 12:31 36.0 C L 74 14 BP Pulse Ox 12/09/18 07:25 125/65 97 12/09/18 04:51 95 12/09/18 00:22 12/08/18 23:49 122/77 97 12/08/18 21:01 142/71 H 98 12/08/18 19:22 111/72 95 12/08/18 16:42 125/68 99 12/08/18 15:53 108/68 98 12/08/18 14:49 127/75 98 12/08/18 14:20 128/79 95 12/08/18 13:50 149/75 H 93 12/08/18 13:35 144/80 H 98 12/08/18 13:20 158/71 H 97 12/08/18 13:10 156/81 H 94 12/08/18 13:00 163/98 H 97 12/08/18 12:50 163/89 H 96 12/08/18 12:40 156/88 H 98 12/08/18 12:31 158/106 H 97 Pain Intensity Lower Medial Back: Pain Intensity: 3 Notes Mental Status: alert / awake / arousable Patient Amnestic to Procedure: Yes Nausea / Vomiting: adequately controlled Pain: adequately controlled Airway Patency, RR, SpO2: stable & adequate BP & HR: stable & adequate Hydration State: stable & adequate Anesthetic Complications: no major complications apparent and Pt Satisfied with anesthetic care
--- NOTE | 2018-12-09 13:33 | Orthopedic Progress Note ---
Date of Service December 09, 2018 Assessment & Plan (1) Spinal stenosis, lumbar region with neurogenic claudication: This time will initiate physical therapy monitor his HUNTER output and hopefully discharge home Wednesday or Wednesday with home health. Present on Admission?: Yes Subjective Back pain is controlled leg symptoms markedly improved. Physical Exam Physical Exam: Patient is in the chair at the bedside. Is good strength testing. Results & Data Vital Signs (Past 12 Hours) Vital Signs Temp Pulse Resp BP BP Pulse Ox 12/09/18 12:59 36.8 C 59 L 16 120/79 94 12/09/18 07:25 36.9 C 72 16 125/65 97 12/09/18 04:51 36.6 C 63 16 108/57 L 95
--- NOTE | 2018-12-09 16:40 | Hospitalist Progress Note ---
Date of Service December 09, 2018 Assessment & Plan (1) Status post lumbar surgery: Post op day#1 S/P Lumbar decompression L3-L5, fusion L4-L5 by Dr Vicki REYNAGA#175ml Post op continues to do well Hgb slight drop to 12.6, no need for transfusion -pain management per ortho -wound management per ortho -PT/OT as appropriate -DVT prophylaxis per ortho - aspirin 81mg BID, SCDs -incentive spirometry -monitor H&H again in the AM for acute blood loss anemia (2) Chronic combined systolic and diastolic CHF (congestive heart failure): out patient records: 09/2018 Echo: EF 45%, grade 1 diastolic dysfunction, global hypokinesis No SOB, no significant edema, lungs clear, no signs volume overload at this time. -Monitor volume status closely -continue home Coreg (3) CAD (coronary artery disease): Hx CAD S/P CABG x 3 in 2001 Outpatient records: Hx Lexiscan thallium stress test 09/2018 consistent with scarring of inferior apical and far apical anterior segments with no evidence of recurrent ischemia overall left ventricular function is moderate to markedly reduced with global hypokinesis No issues with angina post-op -Continue aspirin, carvedilol, atorvastatin (4) Paroxysmal atrial fibrillation: Remains in regular rhythm on exam here -Xarelto has been on hold since 12/01/18-restart when ok with Surgeon but would likely be at least 48-72 hrs post-op -continue Coreg (5) Hypertension: Stable, BPs controlled -Continue carvedilol (6) Hyperlipidemia: -Continue statin (7) Anxiety and depression: -Continue escitalopram (8) Macrocytosis: MCV 104-105 -check B12, folate, TSH, LFTs in AM (9) Acid reflux: -Continue PPI DVT Prophylaxis -SCDs, aspirin 81mg BID Disposition per primary team Follows with Dr Macias in [place] for routine care Thank you for this consultation. [facility] Hospitalist service will continue to follow the patient Subjective Pt feeling well. Back pain is controlled, he was OOB and ambulated to the bathroom. He denies nausea and is azael po. No BM in 2 days. Denies chest pain or SOB, no palpitations No headache or lightheadedness Review of Systems Review of Systems: All systems reviewed & are unremarkable except as noted in HPI & below Physical Exam Constitutional: WD/WN, vitals as above Eyes: + anicteric sclerae Neck: trachea midline, no thyromegaly Respiratory: normal respiratory effort, lungs clear to auscultation Cardiovascular: RRR, no murmur, no edema Gastrointestinal (Abdomen): normal bowel sounds, soft, nontender, no hepatosplenomegaly Musculoskeletal: Extremities: extremities normal to inspection; no cyanosis and no clubbing Skin: no rashes, warm and dry Neurologic: moves all extremities and awake; no focal motor deficits Psychiatric: A+Ox3, euthymic affect Results & Data Vital Signs (Past 12 Hours) Vital Signs Temp Pulse Resp BP BP Pulse Ox 12/09/18 15:28 36.9 C 84 16 120/73 93 12/09/18 14:05 94 12/09/18 12:59 36.8 C 59 L 16 120/79 94 12/09/18 07:25 36.9 C 72 16 125/65 97 12/09/18 04:51 36.6 C 63 16 108/57 L 95 Laboratory Results 12/09/18 12/09/18 12/09/18 Range/Units 05:21 05:21 05:21 WBC 10.46 (4.8-10.8) K/uL RBC 3.56 L (4.7-6.1) M/uL Hgb 12.6 L (14.0-18.0) g/dL Hct 37.6 L (42-52) % MCV 105.6 H (80-100) fL MCH 35.4 H (25-34) pg MCHC 33.5 (32-36) g/dL RDW Std Deviation 49.0 H (36.4-46.3) fL RDW Coeff of Micki 12.6 (11.5-14.5) % Plt Count 225 (130-400) K/uL MPV 10.6 H (7.4-10.4) fL Immature Gran % (Auto) 0.3 % Neut % (Auto) 71.6 % Lymph % (Auto) 17.7 % [place] % (Auto) 8.8 % Eos % (Auto) 1.5 % Baso % (Auto) 0.1 % Immature Gran # (Auto) 0.03 H (0.00-0.02) K/uL Neut # (Auto) 7.49 H (1.4-6.5) K/uL Lymph # (Auto) 1.85 (1.2-3.4) K/uL [place] # (Auto) 0.92 H (0.11-0.59) K/uL Eos # (Auto) 0.16 (0-0.5) K/uL Baso # (Auto) 0.01 (0-0.2) K/uL Sodium 134 L (136-145) mmol/L Potassium 4.4 (3.5-5.1) mmol/L Chloride 101 (98-107) mmol/L Carbon Dioxide 26 (21-32) mmol/L Anion Gap 7.0 (3-11) BUN 12 (7-18) mg/dl Creatinine 0.89 (0.6-1.4) mg/dl Est Cr Clr Drug Dosing 89.7 ml/min Est GFR ( Amer) 98.3 Est GFR (Non-Af Amer) 84.8 BUN/Creatinine Ratio 13.9 (10-20) Glucose 94 (70-99) mg/dl Calcium 8.6 (8.5-10.1) mg/dl Hepatitis C Ab Screen Neg (Neg) PG Care Time/CCT Total # of Minutes Spent Total Time Spent with Patient: Total time spent is greater than 50% in coordination of care (as documented) at patient's floor/unit and/or counseling patient:
[2018-12-09] MEDS: MAGNESIUM HYDROXIDE SUSP 30 ML UDC PO PRN (17:04)
[2018-12-09] MEDS: CYCLOBENZAPRINE HCL 10 MG TAB PO SCH (20:32)
[2018-12-09] MEDS: ATORVASTATIN 10 MG TAB PO SCH (20:33)
[2018-12-09] MEDS: DOCUSATE SODIUM/SENNA 50/8.6MG TAB PO SCH (20:33)
[2018-12-10] MEDS: POLYETHYLENE (MIRALAX) 17 GM PACK PO SCH ×4 (05:45→23:18)
[2018-12-10] MEDS: OXYCODONE HCL IR 5 MG TAB (IMMEDIATE RELEASE) PO PRN ×3 (05:48→18:50)
[2018-12-10 06:07] LABS: Basophils # (auto) 0.01 K/uL (0-0.2); Basophils % (auto) 0.1 %; Eosinophils # (auto) 0.15 K/uL (0-0.5); Eosinophils % (auto) 1.9 %; Hemoglobin 11.4 g/dL (14.0-18.0); Immature Granulocytes # (auto) 0.02 K/uL (0.00-0.02); Immature Granulocytes % (auto) 0.3 %; Lymphocytes # (auto) 1.69 K/uL (1.2-3.4); Lymphocytes % (auto) 21.3 %; Mean Corpuscular Hemoglobin 35.7 pg (25-34); Mean Corpuscular Hgb Conc 34.5 g/dL (32-36); Mean Corpuscular Volume 103.4 fL (80-100); Mean Platelet Volume 10.4 fL (7.4-10.4); Monocytes % (auto) 15.1 %; Neutrophils # (auto) 4.87 K/uL (1.4-6.5); Neutrophils % (auto) 61.3 %; Platelet Count 197 K/uL (130-400); RDW Coefficient of Variation 12.4 % (11.5-14.5); RDW Standard Deviation 47.1 fL (36.4-46.3); Red Blood Count 3.19 M/uL (4.7-6.1); White Blood Count 7.94 K/uL (4.8-10.8)
[2018-12-10 06:44] LABS: Albumin Level 2.6 gm/dl (3.4-5.0); BUN Creatinine Ratio 14.9 (10-20); Bilirubin Direct 0.2 mg/dl (0-0.2); Calcium 8.3 mg/dl (8.5-10.1); Creatinine Clr Calc Pharmacy 84.9 ml/min; Est GFR (African American) 92.9; Est GFR (Non-African American) 80.1; Potassium 4.2 mmol/L (3.5-5.1)
[2018-12-10 06:55] LABS: Bilirubin,Total 0.6 mg/dl (0.2-1); Thyroid Stimulating Hormone 1.46 uIu/ml (0.300-4.500); Total Protein 5.9 gm/dl (6.4-8.2)
[2018-12-10 08:48] LABS: Folate (Folic Acid) 9.08 ng/ml (>5.38)
[2018-12-10] MEDS: ASPIRIN 81 MG ECTAB PO SCH ×2 (09:15→21:14)
[2018-12-10] MEDS: carvediloL 6.25 MG TAB PO SCH ×2 (09:15→21:12)
[2018-12-10] MEDS: ESCITALOPRAM OXALATE 20 MG TAB PO SCH (09:15)
[2018-12-10] MEDS: PANTOprazole 40 MG TAB PO SCH (09:15)
--- NOTE | 2018-12-10 10:02 | Orthopedic Progress Note ---
Date of Service December 10, 2018 Assessment & Plan (1) Status post lumbar surgery: This time we will maintain the HUNTER drain today. Encourage physical therapy. Most likely discharge home tomorrow. Present on Admission?: Yes Subjective Patient's back pain is controlled leg symptoms markedly improved. Physical Exam Physical Exam: Patient has good strength testing. Sitting in chair comfortably. Results & Data Vital Signs (Past 12 Hours) Vital Signs Temp Pulse Resp BP Pulse Ox 12/10/18 07:45 36.5 C 62 16 103/63 93 12/09/18 23:15 37 C 78 16 118/60 93
[2018-12-10] MEDS: MAGNESIUM HYDROXIDE SUSP 30 ML UDC PO PRN (13:36)
--- NOTE | 2018-12-10 15:40 | Hospitalist Progress Note ---
Date of Service December 10, 2018 Assessment & Plan (1) Status post lumbar surgery: Post op day#2 S/P Lumbar decompression L3-L5, fusion L4-L5 by Dr Vicki REYNAGA#175ml Having good recovery so far Hgb slight drop to 11.4, no need for transfusion -pain management per ortho -wound management per ortho -PT/OT as appropriate -DVT prophylaxis per ortho - aspirin 81mg BID, SCDs -incentive spirometry (2) Chronic combined systolic and diastolic CHF (congestive heart failure): out patient records: 09/2018 Echo: EF 45%, grade 1 diastolic dysfunction, global hypokinesis No SOB, no significant edema, lungs clear, no signs volume overload at this time. -Monitor volume status closely -continue home Coreg (3) CAD (coronary artery disease): Hx CAD S/P CABG x 3 in 2001 Outpatient records: Hx Lexiscan thallium stress test 09/2018 consistent with scarring of inferior apical and far apical anterior segments with no evidence of recurrent ischemia overall left ventricular function is moderate to markedly reduced with global hypokinesis No issues with angina post-op -Continue aspirin, carvedilol, atorvastatin (4) Paroxysmal atrial fibrillation: Remains in regular rhythm on exam here -Xarelto has been on hold since 12/01/18-restart when ok with Surgeon but would likely be at least 48-72 hrs post-op -continue Coreg (5) Hypertension: Stable, BPs controlled -Continue carvedilol (6) Hyperlipidemia: -Continue statin (7) Anxiety and depression: -Continue escitalopram (8) Macrocytosis: MCV 104-105 B12, folate, TSH, LFTs all normal -could be early MDS--> recommend Heme referral as otupt (9) Acid reflux: -Continue PPI DVT Prophylaxis -SCDs, aspirin 81mg BID Disposition per primary team-plans for possible discharge to home tomorrow Follows with Dr Macias in [place] for routine care Thank you for this consultation. [facility] Hospitalist service will sign off at this time-please feel free to reconsult if new or acute issues arise. Subjective Pt doing well, ambulated the halls this AM. Pain controlled. Still no BM but no nausea and no abd pain. Denies CP or SOB. No headache or lightheadedness Review of Systems Review of Systems: All systems reviewed & are unremarkable except as noted in HPI & below Physical Exam Constitutional: WD/WN, vitals as above Eyes: + anicteric sclerae Neck: trachea midline, no thyromegaly Respiratory: normal respiratory effort, lungs clear to auscultation Cardiovascular: RRR, no murmur, no edema Gastrointestinal (Abdomen): normal bowel sounds, soft, nontender, no hepatosplenomegaly Musculoskeletal: Extremities: extremities normal to inspection; no cyanosis and no clubbing Skin: no rashes, warm and dry Neurologic: moves all extremities and awake; no focal motor deficits Psychiatric: A+Ox3, euthymic affect Results & Data Vital Signs (Past 12 Hours) Vital Signs Temp Pulse Resp BP BP Pulse Ox 12/10/18 15:00 36.8 C 58 L 16 112/69 95 12/10/18 07:45 36.5 C 62 16 103/63 93 Laboratory Results 12/10/18 12/10/18 12/10/18 Range/Units 05:20 05:20 05:20 WBC 7.94 (4.8-10.8) K/uL RBC 3.19 L (4.7-6.1) M/uL Hgb 11.4 L (14.0-18.0) g/dL Hct 33.0 L (42-52) % MCV 103.4 H (80-100) fL MCH 35.7 H (25-34) pg MCHC 34.5 (32-36) g/dL RDW Std Deviation 47.1 H (36.4-46.3) fL RDW Coeff of Micki 12.4 (11.5-14.5) % Plt Count 197 (130-400) K/uL MPV 10.4 (7.4-10.4) fL Immature Gran % (Auto) 0.3 % Neut % (Auto) 61.3 % Lymph % (Auto) 21.3 % [place] % (Auto) 15.1 % Eos % (Auto) 1.9 % Baso % (Auto) 0.1 % Immature Gran # (Auto) 0.02 (0.00-0.02) K/uL Neut # (Auto) 4.87 (1.4-6.5) K/uL Lymph # (Auto) 1.69 (1.2-3.4) K/uL [place] # (Auto) 1.20 H (0.11-0.59) K/uL Eos # (Auto) 0.15 (0-0.5) K/uL Baso # (Auto) 0.01 (0-0.2) K/uL Sodium 135 L (136-145) mmol/L Potassium 4.2 (3.5-5.1) mmol/L Chloride 101 (98-107) mmol/L Carbon Dioxide 27 (21-32) mmol/L Anion Gap 7.0 (3-11) BUN 14 (7-18) mg/dl Creatinine 0.94 (0.6-1.4) mg/dl Est Cr Clr Drug Dosing 84.9 ml/min Est GFR ( Amer) 92.9 Est GFR (Non-Af Amer) 80.1 BUN/Creatinine Ratio 14.9 (10-20) Glucose 108 H (70-99) mg/dl Calcium 8.3 L (8.5-10.1) mg/dl Total Bilirubin 0.6 (0.2-1) mg/dl Direct Bilirubin 0.2 (0-0.2) mg/dl AST 24 (15-37) U/L ALT 24 (12-78) U/L Alkaline Phosphatase 89 (45-117) U/L Total Protein 5.9 L (6.4-8.2) gm/dl Albumin 2.6 L (3.4-5.0) gm/dl Vitamin B12 463 (211-911) pg/ml Folate 9.08 (>5.38) ng/ml TSH 1.460 (0.300-4.500) uIu/ml Crossmatch 12/08/18 Range/Units 09:08 WBC (4.8-10.8) K/uL RBC (4.7-6.1) M/uL Hgb (14.0-18.0) g/dL Hct (42-52) % MCV (80-100) fL MCH (25-34) pg MCHC (32-36) g/dL RDW Std Deviation (36.4-46.3) fL RDW Coeff of Micki (11.5-14.5) % Plt Count (130-400) K/uL MPV (7.4-10.4) fL Immature Gran % (Auto) % Neut % (Auto) % Lymph % (Auto) % [place] % (Auto) % Eos % (Auto) % Baso % (Auto) % Immature Gran # (Auto) (0.00-0.02) K/uL Neut # (Auto) (1.4-6.5) K/uL Lymph # (Auto) (1.2-3.4) K/uL [place] # (Auto) (0.11-0.59) K/uL Eos # (Auto) (0-0.5) K/uL Baso # (Auto) (0-0.2) K/uL Sodium (136-145) mmol/L Potassium (3.5-5.1) mmol/L Chloride (98-107) mmol/L Carbon Dioxide (21-32) mmol/L Anion Gap (3-11) BUN (7-18) mg/dl Creatinine (0.6-1.4) mg/dl Est Cr Clr Drug Dosing ml/min Est GFR ( Amer) Est GFR (Non-Af Amer) BUN/Creatinine Ratio (10-20) Glucose (70-99) mg/dl Calcium (8.5-10.1) mg/dl Total Bilirubin (0.2-1) mg/dl Direct Bilirubin (0-0.2) mg/dl AST (15-37) U/L ALT (12-78) U/L Alkaline Phosphatase (45-117) U/L Total Protein (6.4-8.2) gm/dl Albumin (3.4-5.0) gm/dl Vitamin B12 (211-911) pg/ml Folate (>5.38) ng/ml TSH (0.300-4.500) uIu/ml Crossmatch See Detail PG Care Time/CCT Total # of Minutes Spent Total Time Spent with Patient: Total time spent is greater than 50% in coordination of care (as documented) at patient's floor/unit and/or counseling patient:
[2018-12-10] MEDS: CYCLOBENZAPRINE HCL 10 MG TAB PO SCH (21:14)
[2018-12-10] MEDS: DOCUSATE SODIUM/SENNA 50/8.6MG TAB PO SCH (21:14)
[2018-12-10] MEDS: ATORVASTATIN 10 MG TAB PO SCH (21:14)
[2018-12-11] MEDS: POLYETHYLENE (MIRALAX) 17 GM PACK PO SCH (06:32)
[2018-12-11] MEDS: PANTOprazole 40 MG TAB PO SCH (08:29)
[2018-12-11] MEDS: ASPIRIN 81 MG ECTAB PO SCH (08:29)
[2018-12-11] MEDS: ESCITALOPRAM OXALATE 20 MG TAB PO SCH (08:29)
[2018-12-11] MEDS: MAGNESIUM HYDROXIDE SUSP 30 ML UDC PO PRN (08:29)
[2018-12-11] MEDS: carvediloL 6.25 MG TAB PO SCH (08:29)
--- NOTE | 2018-12-11 10:58 | Discharge Summary ---
Date of Service December 11, 2018 Admission HPI Per Admitting Provider Pt is 73 y/o M with PMH chronic systolic and diastolic heart failure, dilated cardiomyopathy, CAD s/p CABG x 3, paroxysmal atrial fibrillation, HLD, HTN, GERD, depression seen in post op medical management s/p lumbar decompression L3- L5 and fusion of L4-L5. Post-op pt reports doing well with pain controlled. Tolerated clear liquids for lunch. Denies nausea or vomiting. Denies CP, SOB, fever/chills, diaphoresis, diarrhea, OLVERA, dizziness, syncope, vision changes, neck pain, orthopnea, palpitations, cough, sore throat, choking, otalgia, rhinorrhea, abdominal pain, extremity edema, rashes, urinary symptoms. Principal Diagnosis Lumbar spinal stenosis with neurogenic claudication Discharge Data Allergies Allergy/AdvReac Type Severity Reaction Status Date / Time No Known Drug Allergies Allergy Unknown NONE Verified 12/08/18 08:59 shellfish derived Allergy HIVES,EVERYTHING Verified 12/08/18 08:59 SWELLS UP, SOME TROUBLE BREATHING Consultations 12/08/18 14:08 Consult Case Management - Discharge Planning Routine Consult Hospitalist Routine Procedures Performed Operation Date: 12/08/18 10:10 Actual Procedures p L4-L5 Decompression and Fusion with Spinal Cord Monitoring; Application of BMP(Not Applicable) - Sagar Cohen DO Ordered Studies 12/08/18 10:10 FL fluoroscopy <1hr Routine FL lumbar spine 2-3V Routine Hospital Course (1) Spinal stenosis, lumbar region with neurogenic claudication: Patient underwent lumbar decompression fusion toilet as well as taken to the orthopedic floor postoperatively on postop day 1 he was up and ambulating well. Progress postop 2. HUNTER drain decreasing appropriately. Subsequent discharge on postop day #3. He was neurologically intact and comfortable on the day. Discharge orders instructions from the chart for further review. Total Time Total Time Spent Total Time Spent (In Minutes): 20 minutes Discharge Plan Discharge Items Patient Disposition: Home - Home Health Services Reason For Visit: LUMBAR SPINAL STENOSIS W/NEUROGENIC CLAUDICATION Discharge Diagnosis: Lumbar spinal stenosis with neurogenic claudication Activity: Per Instructions section Non-emergency contact: Primary Care Provider Call non-emergency contact if: you have any medication questions Follow-up/Referrals: Tanner Macias, [facility] [Primary Care Provider] - Diet: Regular Addtl Attending Provider Instructions: ACTIVITY RECOMMENDATIONS: SELF CARE INSTRUCTIONS AFTER THORACIC/LUMBAR FUSIONS 1. You may walk to your tolerance. It is good exercise for your legs and back. Expect some back and intermittent leg aches and pains. 2. You may perform "counter-top" level activities (make a sandwich, yadira with a project, etc.). 3. No bending or lifting of more than 10 pounds or back twisting of any nature (roll like a log when turning in bed). 4. You may ride in a car for 20-30 minutes at a time. No driving until after your first visit with your doctor. 5. Frequent changes of position and restricting sitting to 30 minutes at a time will help limit the amount of back spasms and stiffness you may experience. 6. You may discontinue the use of ambulatory aids (cane, crutches, etc.) once your strength and confidence allow. 7. You may bias cutting machine operator the shower and let water strike your incision when you arrive home at least once daily. Do not take a tub bath, sit in a hot tub or go into a swimming pool until after your first recheck in the office. SPECIAL CARE INSTRUCTIONS: VERY IMPORTANT TO READ AND REVIEW A. Your surgical incision has been closed with a cosmetic suture under the skin that will dissolve in about 6 weeks. In 14 days, you can use a pair of clean scissors and cut the suture that is left outside of the skin at the ends of your incision. 1. The small skin tapes can be removed 7 days after surgery if they have not fallen off by that point. 2. You may keep the wound open to air as much as possible to promote healing after post-op day number 5 unless told otherwise by your doctor. 3. If you think the wound looks like it is becoming infected (redness or worsening drainage) and/or you are experiencing fever, chill or worsening back pain and muscle spasms, contact the office so that we may evaluate you as soon as possible. B. Complications are uncommon, but please contact us if you have any signs or symptoms of: 1. wound infection (fever higher than 102.5 degrees F, redness, separation of wound, drainage, or increasing pain from the incision) 2. blood clots in legs (pain, swelling, redness and warmth in legs) 3. urinary tract infection (fever higher than 102.5 degrees F, burning upon urination or increased frequency of urination) 4. nerve problems (inability to walk on your toes or heels, numbness, loss of bowel or bladder control) 5. any other symptoms that concern you C. Please call the office at if you have any concerns or questions about your operation or recovery. D. No smoking! Smoking drastically decreases the chance of a solid fusion. E. Do not take any anti-inflammatory medications (Indocin, Advil, Motrin, Aspirin, Naprosyn, etc.) as these may inhibit the chance of a solid fusion. Tylenol is okay to take for pain. MANAGING PAIN AFTER SPINAL SURGERY 1. Narcotic medication is intended for short-term use and will be provided for surgical pain. Surgical pain usually lasts for a period of 4-6 weeks. Narcotic medication includes Percocet, Vicodin, Darvocet, Tylenol #3 or Lortab. 2. Longer-term pain is more appropriately treated with non-narcotic medication such as Tylenol ES. 3. Muscle spasm is not appropriately treated with narcotics. Muscle relaxers such as Soma, Flexeril or Skelaxin can be used along with Tylenol ES. 4. Remember that we all live with some "aches and pains". This is not unusual or uncommon after an injury or as we get older. a. Back pain is expected and may include muscle spasms for 4 to 6 weeks after surgery. The pain should gradually improve. If the pain worsens for no apparent reason, please contact the office. b. Intermittent leg pain may also be experienced and should not be concerned about unless it worsens for no apparent reason. If so, please contact the office. 5. We will provide appropriate medication within the normal guidelines of their prescribed use. We will also be very cautious and aware of potential abuse and extended duration of patients' medication needs. a. Pain medications are for your comfort and to assist with sleep and rest so that the tissue can heal. They are not provided in order to return to normal activity and should not be used through the day. To do so or worsening pain at night can result from ongoing tissue damage and development of tolerance to the prescribed medicine. 6. Please allow 2-3 days to process refills. Prescriptions will not be mailed but must be picked up at the office. FOLLOW UP VISIT: Keep your scheduled follow-up appointment. Any questions, please call the office at . Pending Studies at Discharge: No Stand-Alone Forms: My [facility] Medications and DC Order Prescriptions: New tramadol 50 mg Tablet 50 mg PO Q4H PRN (Reason: Pain, Moderate) Qty: 30 RF: 0 oxycodone 5 mg Tablet 5 mg PO Q4H PRN (Reason: Pain, Severe) Qty: 30 RF: 0 Continued cyclobenzaprine 10 mg Tablet 10 mg PO HS RF: 0 carvedilol 6.25 mg Tablet 6.25 mg PO BID RF: 0 atorvastatin 10 mg Tablet 10 mg PO HS RF: 0 aspirin [Aspir-81] 81 mg Tablet,Delayed Release (Dr/Ec) 81 mg PO BID RF: 0 omeprazole 20 mg Capsule,Delayed Release(Dr/Ec) 20 mg PO QAM RF: 0 zolpidem 10 mg Tablet 10 mg PO UD PRN (Reason: Sleep) RF: 0 escitalopram oxalate 20 mg Tablet 20 mg PO QAM RF: 0 Xarelto 20 mg Tablet 20 mg PO DAILY RF: 0 Discharge Orders: Discharge Order (Routine); Ordered 12/11/18 Ordered By: Sagar Cohen Admission Data Admit Date/Time: 12/08/18 12:17 Attending Provider: Sagar Cohen Admit Provider: Sagar Cohen Primary Care Provider: Tanner Macias Other Providers: Richard De La Paz ; Judi Schmidt
== END 2018-12-11 13:05 | disposition home health service (06) | DRG 454 ==
LOC: ASU 08:30 → 3E 12:17